=== PATIENT | female | born 1995 | race African-American/Black ===

== ENCOUNTER 2017-05-21 12:45 | Emergency (ER) | payer SELFPAY ==
[~2017-05-21] VITALS: Ht 157.5 cm; Wt 55.0 kg
[2017-05-21 13:04] VITALS: BP 108/69
[2017-05-21] MEDS ORDERED: SODIUM CHLORIDE 0.9% 1,000 ML IV ONE (13:30)
[2017-05-21] MEDS ORDERED: ONDANSETRON 2MG/ML, 2ML IVPush ONE (13:30)
[2017-05-21] MEDS ORDERED: SODIUM CHLORIDE 0.9% 1,000ML IVBOLUS ONE (13:30)
[2017-05-21] MEDS ORDERED: ONDANSETRON 2MG/ML, 2ML ONE (13:44)
[2017-05-21 13:58] LABS: BLOOD UREA NITROGEN 9 mg/dL (7-18)
== END 2017-05-21 16:29 | disposition home or self-care (01) ==
LOC: ED 15:00
DX: N30.01 Acute cystitis with hematuria (principal); R11.2 Nausea with vomiting, unspecified
CPT/HCPCS: 36415; 76830; 80048; 81001; 82040; 84703; 85025; 87086; 99285

== ENCOUNTER 2017-10-30 14:09 | Emergency (ER) | payer MEDICAID, OTHER ==
[~2017-10-30] VITALS: Ht 157.5 cm; Wt 56.0 kg
[2017-10-30 14:25] VITALS: BP 106/71
[2017-10-30 16:06] LABS: HCG UR LOT HCG706132
[2017-10-30 16:09] LABS: HCG UR OBC PASS
== END 2017-10-30 16:20 | disposition home or self-care (01) ==
LOC: ED 16:14
DX: K02.9 Dental caries, unspecified (principal)
CPT/HCPCS: 81003; 81025; 99284

== ENCOUNTER 2019-04-28 14:35 | Emergency (ER) | payer OTHER ==
[~2019-04-28] VITALS: Ht 154.9 cm; Wt 55.0 kg
[2019-04-28 14:37] VITALS: BP 92/58
[2019-04-28] MEDS ORDERED: ACETAMINOPHEN 325 MG TABLET ONE (15:09)
--- NOTE | 2019-04-28 15:14 | NUR ---
PATIENT MEDICATED WITH ACETAMINOPHEN AND ICE PACK GIVEN.
[2019-04-28] MEDS ORDERED: PLEASE ENTER WEIGHT MC SCH (15:30)
[2019-04-28] MEDS ORDERED: ACETAMINOPHEN 325 MG TABLET PO ONE (15:30)
== END 2019-04-28 15:45 ==
LOC: ED 15:39
DX: S63.521A Sprain of radiocarpal joint of right wrist, initial encounter (principal); Z88.6 Allergy status to analgesic agent; W10.8XXA Fall (on) (from) other stairs and steps, initial encounter; Y93.89 Activity, other specified; Y92.89 Other specified places as the place of occurrence of the external cause; Y99.8 Other external cause status
CPT/HCPCS: 29125; 99283

== ENCOUNTER 2020-05-28 14:11 | Emergency (ER) | payer MEDICAID ==
[~2020-05-28] VITALS: Ht 154.9 cm; Wt 54.4 kg
[2020-05-28 14:13] VITALS: BP 119/52
--- NOTE | 2020-05-28 14:24 | NUR ---
REPORT RECEIVED, CARE ASSUMED
--- NOTE | 2020-05-28 14:28 | NUR ---
DR JUSTIN AT BEDSIDE TO LEAT[facility] PT
== END 2020-05-28 14:49 | disposition home or self-care (01) ==
LOC: ED 14:45
DX: R04.0 Epistaxis (principal); F17.200 Nicotine dependence, unspecified, uncomplicated
CPT/HCPCS: 99282

== ENCOUNTER 2020-09-05 12:26 | Emergency (ER) | payer MEDICAID ==
[~2020-09-05] VITALS: Ht 154.9 cm; Wt 55.4 kg
[2020-09-05 12:30] VITALS: BP 99/48
== END 2020-09-05 14:24 | disposition home or self-care (01) ==
LOC: ED 13:23
DX: B34.9 Viral infection, unspecified (principal); Z20.828 Contact with and (suspected) exposure to other viral communicable diseases; Z87.891 Personal history of nicotine dependence
CPT/HCPCS: 36415; 87635; 99283